=== PATIENT | male | born 1955 | race Caucasian/White ===

== ENCOUNTER 2022-04-30 08:18 | Observation (INO) | payer MEDICARE, OTHER ==
[2022-04-30] MEDS ORDERED: MORPHINE SULFATE 4 MG/ML SYRINGE IV PRN (08:50)
[2022-04-30] MEDS ORDERED: NALOXONE 0.4 MG/ML 1 ML VIAL IV PRN (08:50)
[2022-04-30] MEDS ORDERED: SODIUM CHLORIDE 0.9% 1,000 ML IV STA (08:50)
[2022-04-30] MEDS ORDERED: MORPHINE SULFATE 2 MG/ML SYRINGE IVP STA (08:50)
[2022-04-30] MEDS ORDERED: ACETAMINOPHEN TAB 325 MG TAB PO PRN (08:50)
--- NOTE | 2022-04-30 08:55 | ED ---
General Adult HPI - General Chief complaint: Abdominal Pain Stated complaint: Hernia Time Seen by Provider: 04/30/22 08:31 Source: patient, RN notes reviewed Mode of arrival: ambulatory Limitations: no limitations - History of Present Illness Initial comments: Patient is a pleasant 66-year-old male presenting to the emergency department with concern regarding his hernia. Hernia has been present for around 12 years. Patient has had increase discomfort the last 3 days. Patient states size has increased. Patient is scheduled to see Dr. Okeefe however not for over a month. Patient has not slept well in the past 3 days. Discomfort is persistent. Discomfort is right inguinal region with swelling. No vomiting. No constipation or diarrhea. - Related Data Home Medications Medication Instructions Recorded Confirmed Apixaban [Eliquis] 5 mg PO DAILY 04/30/22 04/30/22 Benazepril [Lotensin] 10 mg PO DAILY 04/30/22 04/30/22 amLODIPine [Norvasc] 10 mg PO DAILY 04/30/22 04/30/22 Allergies Allergy/AdvReac Type Severity Reaction Status Date / Time No Known Allergies Allergy Verified 04/30/22 08:28 Review of Systems ROS Statement: Those systems with pertinent positive or pertinent negative responses have been documented in the HPI. ROS Other: All systems not noted in ROS Statement are negative. Constitutional: Denies: fever Eyes: Denies: eye pain ENT: Denies: ear pain Respiratory: Denies: cough Cardiovascular: Denies: chest pain Endocrine: Denies: fatigue Gastrointestinal: Reports: as per HPI Musculoskeletal: Denies: back pain Skin: Denies: rash Past Medical History Past Medical History: Atrial Fibrillation, Hypertension History of Any Multi-Drug Resistant Organisms: None Reported Past Surgical History: No Surgical Hx Reported Past Psychological History: No Psychological Hx Reported Smoking Status: Never smoker Past Alcohol Use History: None Reported Past Drug Use History: None Reported General Exam Limitations: no limitations General appearance: alert, in no apparent distress Head exam: Present: normocephalic Eye exam: Present: normal appearance Respiratory exam: Present: normal lung sounds bilaterally Cardiovascular Exam: Present: regular rate, normal rhythm GI/Abdominal exam: Present: soft, tenderness (Minimal tenderness right lower abdomen), normal bowel sounds, hernia (Large right inguinal hernia with extension to the scrotum). Absent: distended, guarding, rebound, rigid Extremities exam: Present: normal inspection Neurological exam: Present: alert Psychiatric exam: Present: normal affect, normal mood Skin exam: Present: normal color Course Vital Signs 04/30/22 08:25 Temperature 98 F Pulse Rate 83 Respiratory 18 Rate Blood Pressure 153/96 O2 Sat by Pulse 98 Oximetry EKG Findings - EKG Results: EKG: interpreted by ERMD (LVH criteria. First-degree AV block.), sinus rhythm, normal axis, normal ST/T Medical Decision Making - Medical Decision Making Hernia reduction was attempted with only mild improvement. Patient has large right inguinal hernia extending to the scrotum with some scrotal swelling. No erythema. No warmth. Patient is able to tolerate partial reduction well. Case was discussed with Dr. Magallon, who will admit and likely take patient to the OR, possibly tomorrow. Patient and family updated. - Lab Data Result diagrams: 04/30/22 09:31 04/30/22 09:31 Disposition Clinical Impression: Incarcerated inguinal hernia Disposition: ADMITTED IP TO THIS HOSP Is patient prescribed a controlled substance at d/c from ED?: No Time of Disposition: 08:55
--- NOTE | 2022-04-30 09:24 | XR ---
EXAMINATION TYPE: XR KUB DATE OF EXAM: 04/30/2022 COMPARISON: NONE HISTORY: Pain TECHNIQUE: Single supine KUB image of the abdomen is obtained FINDINGS: Small bowel demonstrates no evidence for dilatation or air fluid levels. Gas and fecal material is seen in non-distended colon. No convincing evidence for pneumoperitoneum. No unusual calcifications. The lung bases are clear. The osseous structures are intact. IMPRESSION: 1. Overall nonobstructive bowel gas pattern.
[2022-04-30 09:45] LABS: Basophils # (A) 0.1 k/uL (0-0.2); Basophils % (A) 1 %; Eosinophils # (A) 0.1 k/uL (0-0.7); Eosinophils % (A) 2 %; HCT 44.2 % (39.0-53.0); HGB 15.8 gm/dL (13.0-17.5); Lymphocytes # (A) 1.1 k/uL (1.0-4.8); Lymphocytes % (A) 24 %; MCH 32.2 pg (25.0-35.0); MCHC 35.7 g/dL (31.0-37.0); MCV 90.3 fL (80.0-100.0); Mean Platelet Volume 7.1; Monocytes # (A) 0.3 k/uL (0-1.0); Monocytes % (A) 7 %; Neutrophils % (A) 64 %; Platelet Count 188 k/uL (150-450); RDW 12.6 % (11.5-15.5); WBC 4.7 k/uL (3.8-10.6)
[2022-04-30] MEDS: SODIUM CHLORIDE 0.9% 1,000 ML IV SCH ×2 (09:45→20:31)
[2022-04-30 09:54] LABS: ALT 24 U/L (4-49); AST 30 U/L (17-59); African American GFR (CKD) >90 (>60 ml/min/1.73 sqM); Albumin 4.3 g/dL (3.5-5.0); Alkaline Phosphatase 60 U/L (38-126); Amylase 60 U/L (30-110); Anion Gap 7 mmol/L; Blood Urea Nitrogen 12 mg/dL (9-20); Calcium 8.8 mg/dL (8.4-10.2); Carbon Dioxide 27 mmol/L (22-30); Chloride 108 mmol/L (98-107); Glucose 92 mg/dL (74-99); Lipase 43 U/L (23-300); Non-African American GFR(CKD) >90 (>60 ml/min/1.73 sqM); Potassium 3.7 mmol/L (3.5-5.1); Sodium 142 mmol/L (137-145); Total Bilirubin 1.7 mg/dL (0.2-1.3); Total Protein 7.1 g/dL (6.3-8.2)
[2022-04-30 10:00] LABS: Partial Thromboplastin Time 26.5 sec (22.0-30.0); Prothrombin Time 10.6 sec (9.0-12.0)
--- NOTE | 2022-04-30 11:33 | P.GSHP ---
History of Present Illness H&P Date: 04/30/22 Chief Complaint: Incarcerated right inguinal hernia Is a 66-year-old male who has a chronic history of a right internal hernia. Patient has hernia. The proximal 12 years. The patient states he developed significant pain in his hernia. He presents emergency room. The hernia was initially incarcerated. Is now partially reduced. Patient states his pain is improved. Past Medical History Past Medical History: Atrial Fibrillation, Hypertension History of Any Multi-Drug Resistant Organisms: None Reported Past Surgical History: No Surgical Hx Reported Past Psychological History: No Psychological Hx Reported Smoking Status: Never smoker Past Alcohol Use History: None Reported Past Drug Use History: None Reported Medications and Allergies Home Medications Medication Instructions Recorded Confirmed Type Apixaban [Eliquis] 5 mg PO BID 04/30/22 04/30/22 History Benazepril [Lotensin] 10 mg PO DAILY 04/30/22 04/30/22 History amLODIPine [Norvasc] 10 mg PO DAILY 04/30/22 04/30/22 History Allergies Allergy/AdvReac Type Severity Reaction Status Date / Time No Known Allergies Allergy Verified 04/30/22 10:48 Surgical - Exam Vital Signs Temp Pulse Resp BP Pulse Ox 98 F 83 18 153/96 98 04/30/22 08:25 04/30/22 08:25 04/30/22 08:25 04/30/22 08:25 04/30/22 08:25 - General well developed, well nourished, no distress - Eyes PERRL - ENT normal pinna - Neck no masses - Respiratory normal expansion - Cardiovascular Rhythm: regular - Abdomen Large right inguinal hernia extending and the scrotum. Hernia is partially reducible. Abdomen: soft, non tender Results - Labs 04/30/22 09:31 04/30/22 09:31 Abnormal Lab Results - Last 24 Hours (Table) 04/30/22 Range/Units 09:31 Chloride 108 H (98-107) mmol/L Total Bilirubin 1.7 H (0.2-1.3) mg/dL Diabetes panel 04/30/22 Range/Units 09:31 Sodium 142 (137-145) mmol/L Potassium 3.7 (3.5-5.1) mmol/L Chloride 108 H (98-107) mmol/L Carbon Dioxide 27 (22-30) mmol/L BUN 12 (9-20) mg/dL Creatinine 0.76 (0.66-1.25) mg/dL Glucose 92 (74-99) mg/dL Calcium 8.8 (8.4-10.2) mg/dL AST 30 (17-59) U/L ALT 24 (4-49) U/L Alkaline Phosphatase 60 (38-126) U/L Total Protein 7.1 (6.3-8.2) g/dL Albumin 4.3 (3.5-5.0) g/dL Calcium panel 04/30/22 Range/Units 09:31 Calcium 8.8 (8.4-10.2) mg/dL Albumin 4.3 (3.5-5.0) g/dL Pituitary panel 04/30/22 Range/Units 09:31 Sodium 142 (137-145) mmol/L Potassium 3.7 (3.5-5.1) mmol/L Chloride 108 H (98-107) mmol/L Carbon Dioxide 27 (22-30) mmol/L BUN 12 (9-20) mg/dL Creatinine 0.76 (0.66-1.25) mg/dL Glucose 92 (74-99) mg/dL Calcium 8.8 (8.4-10.2) mg/dL Adrenal panel 04/30/22 Range/Units 09:31 Sodium 142 (137-145) mmol/L Potassium 3.7 (3.5-5.1) mmol/L Chloride 108 H (98-107) mmol/L Carbon Dioxide 27 (22-30) mmol/L BUN 12 (9-20) mg/dL Creatinine 0.76 (0.66-1.25) mg/dL Glucose 92 (74-99) mg/dL Calcium 8.8 (8.4-10.2) mg/dL Total Bilirubin 1.7 H (0.2-1.3) mg/dL AST 30 (17-59) U/L ALT 24 (4-49) U/L Alkaline Phosphatase 60 (38-126) U/L Total Protein 7.1 (6.3-8.2) g/dL Albumin 4.3 (3.5-5.0) g/dL Assessment and Plan Assessment: Incarcerated right we will hernia without evidence of bowel obstruction. Patient be scheduled for open repair tomorrow.
--- NOTE | 2022-04-30 18:01 | P.CONS ---
History of Present Illness - Reason for Consult Consult date: 04/30/22 medical management Requesting physician: Ja Lawrence - Chief Complaint right inguinal hernia - History of Present Illness This is a pleasant 66-year-old patient who follows with Dr. Matthews. Chronic stable medical conditions include atrial fibrillation for which patient is on eliquis. Hypertension. Right inguinal hernia. Patient's had inguinal hernia for about 12 years. For about 2 years it has been getting bigger. In the last 3 days patient notices increasing pain in the right groin. Was not able to reduce it when she couldn't do before. Finally decided to come in. It was partially reduced in the ER. Seen by Dr. Lawrence from general surgery. Ronak acuña for surgery tomorrow. Patient last dose of eliquis was yesterday evening. No chest pain or shortness of breath. Has good exercise tolerance. Review of systems: GEN.: None EYES: None HEENT: None NECK: None RESPIRATORY: None CARDIOVASCULAR: None GASTROINTESTINAL: None GENITOURINARY: As above MUSCULOSKELETAL: None LYMPHATICS: None HEMATOLOGICAL: None PSYCHIATRY: None NEUROLOGICAL: None Past medical history to include: Right inguinal hernia, hypertension, atrial fibrillation Social history: Does not smoke or drink alcohol. 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 Family history: Reviewed, noncontributory to presentation Physical examination: VITAL SIGNS: [97.7, 66, 14, 158/86, 97% room air] GENERAL: [BMI 25.1, sitting up in bed, awake, comfortable]. EYES: [Pupils equal. Conjunctiva ramila]l. HEENT: [External appearance of nose and ears normal, oral cavity grossly normal ]. NECK: [JVD not raised; masses not palpable]. HEART: [First and second heart sounds are normal; no edema]. LUNGS:[ Respiratory rate normal; clear to auscultation]. ABDOMEN: [Soft, nontender, liver spleen not palpable, no masses palpable].right inguinal hernia down to the right scrotum. Mild tenderness. Not reducible. PSYCH: [Alert and oriented x3; mood and affect ramila]l. MUSCULOSKELETAL:No Clubbing/cyanosis;muscles-grossly intact NEUROLOGICAL: [Cranial nerves grossly intact; no facial asymmetry, power and sensation grossly intact]. LYMPHATICS: [No lymph nodes palpable in the axilla and neck] INVESTIGATIONS, reviewed in the clinical context: white count 4.7 hemoglobin 15.8 platelets 188 progression 3.7 creatinine 0.76 EKG tracing personally reviewed by me- x-ray KUB. Unremarkable Assessment and plan: -Right inguinal hernia which the patient's had for 2 years, starting getting enlarged nonreducible last 3 days. Incarcerated. Being scheduled for surgery Dr. Lawrence. -essential hypertension Norvasc, Lotensin -Paroxysmal atrial fibrillation, currently sinus rhythm Telemetry. Resume home blood pressure medications. Last dose of eliquis was yesterday evening. Eliquis half life as 12 hours. Patient medically stable otherwise to proceed for surgery. Care was discussed with the patient. Questions answered. Thank you Dr. Lawrence Past Medical History Past Medical History: Atrial Fibrillation, Hypertension History of Any Multi-Drug Resistant Organisms: None Reported Past Surgical History: No Surgical Hx Reported Past Anesthesia/Blood Transfusion Reactions: No Reported Reaction Past Psychological History: No Psychological Hx Reported Smoking Status: Never smoker Past Alcohol Use History: None Reported Past Drug Use History: None Reported Medications and Allergies Home Medications Medication Instructions Recorded Confirmed Type Apixaban [Eliquis] 5 mg PO BID 04/30/22 04/30/22 History Benazepril [Lotensin] 10 mg PO DAILY 04/30/22 04/30/22 History amLODIPine [Norvasc] 10 mg PO DAILY 04/30/22 04/30/22 History Allergies Allergy/AdvReac Type Severity Reaction Status Date / Time No Known Allergies Allergy Verified 04/30/22 10:48 Physical Exam Vitals: Vital Signs Temp Pulse Pulse Resp BP BP Pulse Ox 04/30/22 16:10 97.7 F 66 14 158/86 97 04/30/22 13:30 67 18 143/96 99 04/30/22 11:28 65 18 140/91 98 04/30/22 08:25 98 F 83 18 153/96 98 Intake and Output 04/30/22 04/30/22 04/30/22 06:59 14:59 22:59 Other: # Voids 2 Weight 83.915 kg 83.915 kg Results CBC & Chem 7: 04/30/22 09:31 04/30/22 09:31 Labs: Abnormal Lab Results - Last 24 Hours (Table) 04/30/22 Range/Units 09:31 Chloride 108 H (98-107) mmol/L Total Bilirubin 1.7 H (0.2-1.3) mg/dL
[2022-05-01] MEDS: BENAZEPRIL 10 MG PO SCH (08:51)
[2022-05-01] MEDS: SODIUM CHLORIDE 0.9% 1,000 ML IV SCH (08:52)
[2022-05-01] MEDS: amLODIPine 10 MG TAB PO SCH (08:52)
[2022-05-01] MEDS ORDERED: lisinopriL 10 MG TAB PO SCH (09:00)
[2022-05-01] MEDS ORDERED: LACTATED RINGERS 1,000 ML IV ONE (16:06)
[2022-05-01] MEDS ORDERED: HEPARIN SODIUM,PORCINE 5,000 UNIT/ML 1 ML VIAL SQ ONE (16:20)
[2022-05-01] MEDS: ONDANSETRON 4 MG/2 ML VIAL IVP PRN ×2 (16:20→22:56)
[2022-05-01] MEDS ORDERED: HEPARIN SODIUM,PORCINE/PF 5,000 UNIT/0.5 ML SYRINGE SQ ONE (16:21)
[2022-05-01] MEDS ORDERED: BUPIVACAIN-EPI 0.25%-1:200,000 30 ML VIAL SQ ONE ×2 (16:35→17:18)
[2022-05-01] MEDS ORDERED: LIDOCAINE 2% INJ 20 MG/ML (2 ML VIAL) ONE (16:40)
[2022-05-01] MEDS ORDERED: KETAMINE 10 MG/ML 20 ML VIAL ONE (16:40)
[2022-05-01] MEDS ORDERED: PROPOFOL 10 MG/ML 20 ML VIAL IV ONE (16:40)
[2022-05-01] MEDS ORDERED: KETOROLAC 15 MG/ML 1 ML VIAL ONE (16:40)
[2022-05-01] MEDS ORDERED: NEOSTIGMINE 1 MG/ML 10 ML VIAL ONE (16:40)
[2022-05-01] MEDS ORDERED: MIDAZOLAM 2 MG/2 ML VIAL ONE (16:40)
[2022-05-01] MEDS ORDERED: fentaNYL (PF) 50 MCG/ML 2 ML AMP ONE (16:40)
[2022-05-01] MEDS ORDERED: GLYCOPYRROLATE 0.2 MG/ML 2 ML VIAL ONE (16:40)
[2022-05-01] MEDS ORDERED: ROCURONIUM 10 MG/ML (5 ML VIAL) IV ONE (16:40)
[2022-05-01] MEDS ORDERED: SUCCINYLCHOLINE CHLORIDE 200 MG/10 ML VIAL IV ONE (16:40)
--- NOTE | 2022-05-01 17:24 | P.OP ---
Date of Procedure: 05/01/22 Preoperative Diagnosis: Incarcerated right inguinal hernia Postoperative Diagnosis: Incarcerated we'll hernia with hydrocele Procedure(s) Performed: Repair of incarcerated inguinal hernia with Prolene hernia mesh plug Social hydrocele Anesthesia: SHAYE Surgeon: Ja Lawrence Estimated Blood Loss (ml): 5 Pathology: other (Hernia sac) Condition: stable Disposition: PACU Description of Procedure: DESCRIPTION OF PROCEDURE: The patient was placed in the supine position after receiving adequate anesthesia. Patients groin was prepped and draped in the usual sterile fashion. A standard hernia incision was made and the subcutaneous tissues were divided with electrocautery. The fascia of the external oblique was exposed. A bambi the fascia was made with #15 blade. The fascia was then opened with pair of Metzenbaum scissors. A Weitlaner retractor was placed in the wound and the cord structures were grasped and dissected free from the inguinal canal. A rubber Thornton drain was placed around the cord structures. The hernial sac was seen on the anterior-medial portion of the cord and this was dissected free from the cord. The hernia sac was then dissected. The hernia sac entered the scrotum. Using blunt dissection the testicle and hernia sac were brought up in the wound. The hernia sac was then dissected free and underwent high ligation with 0 Vicryl suture. The hernia sac and hydrocele was sent to pathology. . Using blunt finger dissection, the preperitoneal space was dissected and then the Prolene hernial mesh plug was placed into the prepared space. The inferior leaf was expanded. The superior leaf was secured to the pubic tubercle using 2-0 Prolene suture. The lateral portion of the superior leaf was incised and cords tied and secured to the transversalis fascia using 2-0 Prolene suture. Fascia of the external oblique was then closed using #0 Vicryl suture. The Darwin drain was removed. The Scarpas fascia was then closed with 3-0 Vicryl suture and skin was closed with angelique. The patient tolerated the p rocedure well.
--- NOTE | 2022-05-01 17:51 | P.PN ---
Progress Note - Text Progress Note Date: 05/01/22 - Chief Complaint right inguinal hernia Hospital course This is a pleasant 66-year-old patient who follows with Dr. Matthews. Chronic stable medical conditions include atrial fibrillation for which patient is on eliquis. Hypertension. Right inguinal hernia. Patient's had inguinal hernia for about 12 years. For about 2 years it has been getting bigger. In the last 3 days patient notices increasing pain in the right groin. Was not able to reduce it when she couldn't do before. Finally decided to come in. It was partially reduced in the ER. Seen by Dr. Lawrence from general surgery. Planning for surgery tomorrow. Patient last dose of eliquis was yesterday evening. No chest pain or shortness of breath. Has good exercise tolerance. 05/01/2022: Seen by me earlier this morning. Awaiting surgery. Family the bedside. Pain control. No nausea vomiting. Later this evening patient underwent repair of incarcerated ventral hernia and hydrocele with Prolene hernia mesh. Active Medications Acetaminophen (Acetaminophen Tab 325 Mg Tab) 650 mg PO Q6HR PRN PRN Reason: Mild Pain or Fever > 100.5 Amlodipine Besylate (Amlodipine 10 Mg Tab) 10 mg PO DAILY [facility] Last Admin: 05/01/22 08:52 Dose: 10 mg Enoxaparin Sodium (Enoxaparin 40 Mg/0.4 Ml Syringe) 40 mg SQ DAILY [facility] Hydromorphone HCl (Hydromorphone 1 Mg/Ml 1 Ml Syringe) 1 mg IVP Q3HR PRN PRN Reason: Pain Sodium Chloride (Saline 0.9%) 1,000 mls @ 75 mls/hr IV .[id number] [facility] Last Admin: 05/01/22 08:52 Dose: 75 mls/hr Morphine Sulfate (Morphine Sulfate 4 Mg/Ml Syringe) 4 mg IV Q4HR PRN PRN Reason: Severe Pain (Scale 7 to 10) Naloxone HCl (Naloxone 0.4 Mg/Ml 1 Ml Vial) 0.2 mg IV Q2M PRN PRN Reason: Opioid Reversal Non Formulary Drug ( (Benazepril 10mg)) 1 each PO DAILY [facility] Last Admin: 05/01/22 08:51 Dose: 1 each Ondansetron HCl (Ondansetron 4 Mg/2 Ml Vial) 4 mg IVP Q8HR PRN PRN Reason: Nausea And Vomiting Last Admin: 05/01/22 16:20 Dose: 4 mg Past medical history to include: Right inguinal hernia, hypertension, atrial fibrillation Social history: Does not smoke or drink alcohol. 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 Family history: Reviewed, noncontributory to presentation Physical examination: VITAL SIGNS: 97.8, 67, 16, 156.93, 98% room air GENERAL: BMI 25.1, sitting up in bed, awake, comfortable. EYES: Pupils equal. Conjunctiva normal. HEENT: External appearance of nose and ears normal, oral cavity grossly normal. NECK: JVD not raised; masses not palpable. HEART: First and second heart sounds are normal; no edema. LUNGS: Respiratory rate normal; clear to auscultation. ABDOMEN: Soft, nontender, liver spleen not palpable, no masses palpable.right inguinal hernia down to the right scrotum. Mild tenderness. Not reducible. PSYCH: Alert and oriented x3; mood and affect normal. MUSCULOSKELETAL:No Clubbing/cyanosis;muscles-grossly intact INVESTIGATIONS, reviewed in the clinical context: white count 4.7 hemoglobin 15.8 platelets 188 progression 3.7 creatinine 0.76 EKG tracing personally reviewed by me- x-ray KUB. Unremarkable Assessment and plan: -Right inguinal hernia which the patient's had for 2 years, starting getting enlarged nonreducible last 3 days. Incarcerated. Repair with Prolene mesh and repair of hydrocele today by Dr. Lawrence. -essential hypertension Norvasc, Lotensin -Paroxysmal atrial fibrillation, currently sinus rhythm Telemetry. Continue current medication treatment plan. Resume eliquis tomorrow if okay with Dr. Lawrence. Thank you Dr. Lawrence
[2022-05-01] MEDS: HYDROmorphone 1 MG/ML 1 ML SYRINGE IVP PRN (22:55)
[2022-05-01] MEDS ORDERED: HYDROmorphone 0.5 MG/0.5 ML SYRINGE IVP PRN (23:15)
[2022-05-01] MEDS ORDERED: HYDROmorphone 0.5 MG/0.5 ML SYRINGE ONE (23:19)
[2022-05-02] MEDS: SODIUM CHLORIDE 0.9% 1,000 ML IV SCH (01:03)
[2022-05-02] MEDS: HYDROmorphone 1 MG/ML 1 ML SYRINGE IVP PRN ×2 (06:28→08:49)
[2022-05-02] MEDS: amLODIPine 10 MG TAB PO SCH (08:21)
[2022-05-02] MEDS: BENAZEPRIL 10 MG PO SCH (08:34)
[2022-05-02 08:44] VITALS: PULSE 83
[2022-05-02] MEDS ORDERED: ENOXAPARIN 40 MG/0.4 ML SYRINGE SQ SCH (09:00)
[2022-05-02] MEDS: ONDANSETRON 4 MG/2 ML VIAL IVP PRN (09:41)
[2022-05-02 11:26] LABS: Basophils % (A) 0 %; Eosinophils % (A) 0 %; HCT 37.1 % (39.0-53.0); HGB 13.2 gm/dL (13.0-17.5); Lymphocytes # (A) 0.7 k/uL (1.0-4.8); Lymphocytes % (A) 7 %; MCH 32.6 pg (25.0-35.0); MCHC 35.7 g/dL (31.0-37.0); MCV 91.3 fL (80.0-100.0); Mean Platelet Volume 7.3; Monocytes # (A) 0.5 k/uL (0-1.0); Monocytes % (A) 6 %; Neutrophils % (A) 86 %; Platelet Count 201 k/uL (150-450); RBC 4.06 m/uL (4.30-5.90); RDW 12.4 % (11.5-15.5); WBC 9.3 k/uL (3.8-10.6)
[2022-05-02 11:40] LABS: African American GFR (CKD) >90 (>60 ml/min/1.73 sqM); Anion Gap 8 mmol/L; Blood Urea Nitrogen 16 mg/dL (9-20); Calcium 8.3 mg/dL (8.4-10.2); Carbon Dioxide 25 mmol/L (22-30); Chloride 106 mmol/L (98-107); Glucose 145 mg/dL (74-99); Non-African American GFR(CKD) >90 (>60 ml/min/1.73 sqM); Potassium 3.7 mmol/L (3.5-5.1); Sodium 139 mmol/L (137-145)
[2022-05-02] MEDS ORDERED: HYDROcodone/APAP 5-325MG 1 EACH TAB PO PRN (13:10)
--- NOTE | 2022-05-02 13:46 | P.DS ---
Providers Date of admission: 04/30/22 08:51 Expected date of discharge: 05/02/22 Attending physician: Ja Lawrence Consults: 04/30/22 16:30 Consult Physician Routine Consulting Provider: Shamar Garay Consult Reason/Comments: medical management Do you want consulting provider notified?: Yes Primary care physician: Lebron Matthews [facility] Course: Discharge diagnosis 1. Incarcerated right inguinal hernia with hydrocele status post Repair of incarcerated inguinal hernia with Prolene hernia mesh plug and dissection of hydrocele Hospital course This is a 66-year-old male who presented with a chronic right inguinal hernia for 12 years. The hernia was incarcerated and was able to partially reduced in ER. Patient patient is status post repair of incarcerated inguinal hernia with Prolene mesh plug and dissection of hydrocele. Patient seen and examined with Dr. lawrence. Patient would like to be discharged. His pain is currently controlled. He does have scrotal swelling which is to be expected due to the large inguinal hernia. Patient is tolerating diet. He is up and ambulating. He is afebrile. If his pain remains controlled he is stable for discharge. Please refer to chart for any further details. Physician Director Of Informatics note has been reviewed by physician. Signing provider agrees with the documented findings, assessment, and plan of care. Patient Condition at Discharge: Stable Plan - Discharge Summary New Discharge Prescriptions: New HYDROcodone/APAP 5-325MG [[place] 5-325] 1 tab PO Q6HR PRN 3 Days #12 tab PRN Reason: Pain Continue Benazepril [Lotensin] 10 mg PO DAILY Apixaban [Eliquis] 5 mg PO BID amLODIPine [Norvasc] 10 mg PO DAILY Discharge Medication List Apixaban [Eliquis] 5 mg PO BID 04/30/22 [History] Benazepril [Lotensin] 10 mg PO DAILY 04/30/22 [History] amLODIPine [Norvasc] 10 mg PO DAILY 04/30/22 [History] HYDROcodone/APAP 5-325MG [[place] 5-325] 1 tab PO Q6HR PRN 3 Days #12 tab 05/02/22 [Rx] Follow up Appointment(s)/Referral(s): Lebron Matthews DO [Primary Care Provider] - 1-2 days Ja Lawrence MD [STAFF PHYSICIAN] - 1 Week Activity/Diet/Wound Care/Special Instructions: No driving while taking [place] No lifting over 10 pounds Shower daily. No soaking or tub baths for 2 weeks Very light activity until you are reevaluated at your follow up appointment with your surgeon Discharge Disposition: HOME SELF-CARE
[2022-05-02 16:09] VITALS: BP 123/74; RESP 18; TEMP 98.2
--- NOTE | 2022-05-02 18:14 | P.PN ---
Progress Note - Text Progress Note Date: 05/02/22 - Chief Complaint right inguinal hernia Hospital course This is a pleasant 66-year-old patient who follows with Dr. Matthews. Chronic stable medical conditions include atrial fibrillation for which patient is on eliquis. Hypertension. Right inguinal hernia. Patient's had inguinal hernia for about 12 years. For about 2 years it has been getting bigger. In the last 3 days patient notices increasing pain in the right groin. Was not able to reduce it when she couldn't do before. Finally decided to come in. It was partially reduced in the ER. Seen by Dr. Lawrence from general surgery. Planning for surgery tomorrow. Patient last dose of eliquis was yesterday evening. No chest pain or shortness of breath. Has good exercise tolerance. 05/01/2022: Seen by me earlier this morning. Awaiting surgery. Family the bedside. Pain control. No nausea vomiting. Later this evening patient underwent repair of incarcerated ventral hernia and hydrocele with Prolene hernia mesh. 05/02/2022: Some swelling at the incision site. Seen by surgery. Stable. No fever no chills. Tolerating diet. Care was discussed with the patient and the . He'll follow-up with Dr. Lawrence in the outpatient. Resume eliquis Past medical history to include: Right inguinal hernia, hypertension, atrial fibrillation Social history: Does not smoke or drink alcohol. 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 Family history: Reviewed, noncontributory to presentation Physical examination: VITAL SIGNS: 98.2, 83, 18, 123/74, 98% room air GENERAL: BMI 25.1, sitting up in bed, awake, comfortable. EYES: Pupils equal. Conjunctiva normal. HEENT: External appearance of nose and ears normal, oral cavity grossly normal. NECK: JVD not raised; masses not palpable. HEART: First and second heart sounds are normal; no edema. LUNGS: Respiratory rate normal; clear to auscultation. ABDOMEN: Soft, nontender, liver spleen not palpable, . Right inguinal incision healing well. Some swelling of the right scrotum. Minimally tender. PSYCH: Alert and oriented x3; mood and affect normal. MUSCULOSKELETAL:No Clubbing/cyanosis;muscles-grossly intact INVESTIGATIONS, reviewed in the clinical context: 05/02/2022: White count 9.3 hemoglobin 13.2 potassium 3.7 creatinine 0.76 white count 4.7 hemoglobin 15.8 platelets 188 progression 3.7 creatinine 0.76 EKG tracing personally reviewed by me- x-ray KUB. Unremarkable Assessment and plan: -Right inguinal hernia which the patient's had for 2 years, starting getting enlarged nonreducible last 3 days. Incarcerated. Repair with Prolene mesh and repair of hydrocele 05/01/[address] Lawrence. -essential hypertension Norvasc, Lotensin -Paroxysmal atrial fibrillation, currently sinus rhythm Telemetry. Continue current medication treatment plan. Resume eliquis. Follow with Dr. Matthews. Discussed with patient. Thank you Dr. Lawrence
== END 2022-05-02 16:15 | disposition home or self-care (01) ==
LOC: EC 08:18 → 6NMEDSUR 08:51
PROVIDERS: ADMIT Surgery; ATTEND Surgery
DX: K40.30 Unilateral inguinal hernia, with obstruction, without gangrene, not specified as recurrent (principal); N43.2 Other hydrocele; I10 Essential (primary) hypertension; I44.0 Atrioventricular block, first degree; I48.0 Paroxysmal atrial fibrillation; Z79.01 Long term (current) use of anticoagulants; Z79.899 Other long term (current) drug therapy
CPT/HCPCS: 96360; 96361; 99285; 93005; 80053; 80048; 82150; 83690; 85025 ×2; 85610; 85730; 88302; 74018; 49507; G0378 ×3; C1781; J2250; J0330; J2270; J1644; J2710; J0690; J2405 ×2; J1650; J3010; J1170 ×4; J1885; J2704; J2001

== ENCOUNTER → 2022-05-09 | Outpatient (CLI) | payer MEDICARE ==
--- NOTE | 2022-05-09 11:16 | US ---
"EXAMINATION TYPE: US scrotum with doppler. Grayscale and color Doppler Duplex imaging performed of t rosy scrotum. 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 Right side swelling and pain had hernia surgery x1 week ago. EXAM MEASUREMENTS: TESTICLES: Right Testicle: 4.2 x 2.9 x 2.7 cm Left Testicle: 4.4 x 3.1 x 3.9 cm EPIDIDYMIS HEAD: Right Epididymis: .9 x 2.6 cm Left Epididymis: .9 x 1.0 cm Doppler performed to assess for testicular vascularity; good bilateral color flow and waveforms are s een. There is no evidence of testicular torsion. Presence of hydroceles: yes left, moderate size with internal debris. Complex heterogenous loculated area within right scrotum. IMPRESSION: 1. No evidence of testicular torsion. 2. Complex heterogenous loculated area within the right scrotum which may be telemarketing representative of posts urgical change/edema versus pyocele. 3. Moderate size left hydrocele with internal debris. A Yellow level critical message alert has been initiated for Lebron Matthews DO via the [employer] | Critical Results System on 05/09/2022 11:13 AM. This message alert has been sent to Lebron de león DO via the preferences provided by the clinician for the receipt of Radiology Critical Findings. Message ID [id number]."
== END | disposition home or self-care (01) ==
LOC: RADUSWWP 10:38
PROVIDERS: ATTEND Family Medicine
DX: N43.3 Hydrocele, unspecified (principal); N50.89 Other specified disorders of the male genital organs
CPT/HCPCS: 76870; 93975